=== PATIENT | male | born 1980 | race Caucasian/White ===

== ENCOUNTER 2019-12-06 18:37 | Emergency (ER) | payer OTHER ==
[2019-12-06 18:42] VITALS: BP 134/83; PULSE 74; RESP 20; TEMP 99.6
--- NOTE | 2019-12-06 19:12 | ED ---
General Adult HPI - General Chief complaint: Extremity Injury, Lower Stated complaint: lt foot pain Time Seen by Provider: 12/06/19 18:56 Source: patient, RN notes reviewed Mode of arrival: wheelchair Limitations: no limitations - History of Present Illness Initial comments: Patient is a pleasant 39-year-old male presenting to the emergency Department w ith complaints of left foot pain. Patient states he was walking in the [place]. Patient is unclear if he may have sustained a bug bite. Patient does have discomfort and swelling of his plantar portion of his left foot, more the midfoot. Patient did notice several small red garrido. Patient states discomfort is not in the bony area but the soft tissue. Patient noticed mild swelling. No fevers. No redness. Patient states it does feel warm. - Related Data Previous Rx's Medication Instructions Recorded Cephalexin [Keflex] 500 mg PO QID #40 cap 12/06/19 Loratadine [Claritin] 10 mg PO DAILY #10 tab 12/06/19 predniSONE [Deltasone] 20 mg PO BID #6 tab 12/06/19 Allergies Allergy/AdvReac Type Severity Reaction Status Date / Time No Known Allergies Allergy Verified 12/06/19 18:42 Review of Systems ROS Statement: Those systems with pertinent positive or pertinent negative responses have been documented in the HPI. ROS Other: All systems not noted in ROS Statement are negative. Constitutional: Denies: fever, chills Eyes: Denies: eye pain ENT: Denies: ear pain Respiratory: Denies: cough Cardiovascular: Denies: chest pain Endocrine: Denies: fatigue Gastrointestinal: Denies: abdominal pain Genitourinary: Denies: dysuria Musculoskeletal: Denies: back pain Skin: Reports: as per HPI, rash Past Medical History Past Medical History: No Reported History History of Any Multi-Drug Resistant Organisms: None Reported Past Surgical History: No Surgical Hx Reported Past Psychological History: No Psychological Hx Reported Smoking Status: Current every day smoker Past Alcohol Use History: Daily, Heavy Past Drug Use History: Marijuana, Prescription Drug Abuse General Exam Limitations: no limitations General appearance: alert, in no apparent distress Head exam: Present: normocephalic Eye exam: Present: normal appearance Neck exam: Present: normal inspection Respiratory exam: Present: normal lung sounds bilaterally Cardiovascular Exam: Present: regular rate, normal rhythm Expanded Peripheral pulses: 2+: Posterior Tibialis (R), Posterior Tibialis (L), Dorsalis Pedis (R), Dorsalis Pedis (L) GI/Abdominal exam: Present: soft. Absent: tenderness Extremities exam: Present: tenderness (Plantar portion of the mid foot with mild swelling and mild tenderness. There is mild warmth as well. No significant erythema. Several small erythematous puncture garrido are present.), other (Patient does have small area posterior knee that is soft and nontender consistent with Trujillo's cyst. No calf tenderness. No leg swelling.). Absent: calf tenderness Neurological exam: Present: alert Psychiatric exam: Present: normal affect, normal mood Skin exam: Present: other (Several small erythematous puncture-like areas, approximately 5 in the left foot and ankle and 2 on the right) Course Vital Signs 12/06/19 18:39 Temperature 99.6 F Pulse Rate 74 Respiratory 20 Rate Blood Pressure 134/83 O2 Sat by Pulse 99 Oximetry Medical Decision Making - Medical Decision Making Patient presents with probable reaction to insect bite or sting. There is minimal warmth and 99 temp and therefore patient will be covered with antibiotics. Patient will also be given a couple of days of steroids and antihistamines. Patient is advised to return for fevers or increased pain or redness or swelling. Patient has nontender soft area behind left knee and states he used to do a lot of work putting over or on his knees. Patient is advised if this worsens or becomes tender or firm he may need more evaluation. Exam is consistent with Trujillo's cyst. Disposition Clinical Impression: Insect bite Disposition: HOME SELF-CARE Condition: Stable Instructions (If sedation given, give patient instructions): Insect Bite or Sting (ED) Additional Instructions: Please follow-up with primary care physician in the next couple days for recheck. [id number] Tylenol or Motrin as needed. Return for increased pain, fever, swelling, worsening symptoms or other concerns. Also return if there is leg swelling or pain or swelling behind the left leg. Prescriptions: Loratadine [Claritin] 10 mg PO DAILY #10 tab predniSONE [Deltasone] 20 mg PO BID #6 tab Cephalexin [Keflex] 500 mg PO QID #40 cap Is patient prescribed a controlled substance at d/c from ED?: No Referrals: Dereck Negrete [STAFF PHYSICIAN] - 1-2 days Time of Disposition: 19:17
[2019-12-06] MEDS ORDERED: predniSONE 10 MG TAB PO STA (19:20)
[2019-12-06] MEDS ORDERED: LORATADINE 10 MG TAB PO STA (19:20)
[2019-12-06] MEDS ORDERED: CEPHALEXIN 500MG STARTER PACK 4 CAP BTL PO STA (19:20)
== END 2019-12-06 19:33 | disposition home or self-care (01) ==
LOC: EC 18:37
DX: S90.862A Insect bite (nonvenomous), left foot, initial encounter (principal); F17.200 Nicotine dependence, unspecified, uncomplicated; W57.XXXA Bitten or stung by nonvenomous insect and other nonvenomous arthropods, initial encounter
CPT/HCPCS: 99283; J7512